=== PATIENT | male | born 1955 | race African-American/Black ===

== ENCOUNTER 2019-03-09 15:59 | Emergency (ER) | payer OTHER ==
[~2019-03-09] VITALS: Ht 182.9 cm; Wt 82.0 kg
[2019-03-09 16:59] LABS: HEMOGLOBIN. 16.8 g/dL (14.0-18.0); MEAN CORPUSCULAR HEMOGLOBIN 33.3 pg (28.0-32.0); MEAN CORPUSCULAR VOLUME 95.5 fL (80.0-94.0); MEAN PLATELET VOLUME 10.6 fl (7.4-10.4); PLATELET 252 x1000/uL (130-400); RED BLOOD CELL COUNT 5.03 mill/uL (4.7-6.1); RED CELL DISTRIBUTION WIDTH 12.5 % (11.6-14.6)
[2019-03-09 17:06] LABS: PROTHROMBIN TIME 10.7 sec (9.6-11.0)
[2019-03-09 17:13] LABS: CHLORIDE 105 mEq/L (98-107)
[2019-03-09 17:17] LABS: CLARITY URINE CLOUDY (CLEAR); COLOR URINE YELLOW (YELLOW); KETONES URINE NEGATIVE (NEGATIVE); LEUKOCYTE ESTERASE URINE 2+ (NEGATIVE); NITRITE URINE POSITIVE (NEGATIVE); OCCULT BLOOD URINE NEGATIVE (NEGATIVE); PH URINE 6.5 (4.5-8.0); PROTEIN URINE NEGATIVE (NEGATIVE); SPECIFIC GRAVITY URINE 1.013 (1.005-1.030)
[2019-03-09 18:12] LABS: ATYPICAL LYMPHOCYTES 1; NUCLEATED RED BLOOD CELLS 1 /100 WBC; PLATELET ESTIMATE NORMAL
[2019-03-09] MEDS ORDERED: CEFTRIAXONE 1 G PREMIX 50 ML IV ONE (18:45)
[2019-03-09] MEDS ORDERED: MORPHINE SULFATE 4 MG/ML CPJ (NOT FOR IM USE) IV STA (19:07)
[2019-03-09] MEDS ORDERED: ONDANSETRON HCL 4MG/2ML INJ IV STA (19:07)
[2019-03-09] MEDS ORDERED: ASPIRIN 325MG TABLET PO ONE (19:15)
[2019-03-09 19:31] VITALS: BP 154/90
== END 2019-03-09 21:20 | disposition short-term general hospital (02) ==
LOC: ER 15:59 → CANBEDREQ 03-10 07:36
DX: I63.9 Cerebral infarction, unspecified (principal); N39.0 Urinary tract infection, site not specified; R10.32 Left lower quadrant pain; I10 Essential (primary) hypertension; E78.00 Pure hypercholesterolemia, unspecified; I69.354 Hemiplegia and hemiparesis following cerebral infarction affecting left non-dominant side; F17.210 Nicotine dependence, cigarettes, uncomplicated; F12.10 Cannabis abuse, uncomplicated
CPT/HCPCS: 36415; 70450; 71045; 74176; 80053; 81003; 82962; 83880; 84484; 85025; 85610; 87077; 87086; 87186; 93005; 96374; 96375; 99291; J0696; J2270; J2405